=== PATIENT | male | born 1995 | race Caucasian/White ===

== ENCOUNTER 2020-11-09 15:15 | Emergency (ER) | payer OTHER ==
[2020-11-09 19:52] LABS: HEMOGLOBIN 16.4 gm/dl (14.0-17.5); RED BLOOD COUNT 5.17 M/UL (4.20-5.50); WHITE BLOOD COUNT 9.2 K/UL (4.5-11.0)
[2020-11-09 20:16] LABS: BUN/CREATININE RATIO 16 (0-10)
[2020-11-09] MEDS ORDERED: ZOFRAN4 MG PO (23:12)
[2020-11-11 12:15] LABS: HBSAG SCREEN Negative (Negative); HEP A AB, IGM Negative (Negative); HEP B CORE AB, IGM Negative (Negative); HEP C VIRUS AB <0.1 (0.0-0.9)
== END 2020-11-09 23:30 | disposition home or self-care (01) ==
LOC: ER1 15:15
PROVIDERS: Family Medicine; Physician Assistant
DX: R10.13 Epigastric pain (principal); R10.11 Right upper quadrant pain; R11.2 Nausea with vomiting, unspecified; F17.290 Nicotine dependence, other tobacco product, uncomplicated
CPT/HCPCS: 80053; 80074; 80307; 81001; 83690; 85025; 99284; Q9967

== ENCOUNTER 2020-11-27 23:57 | Inpatient (IN) | payer OTHER ==
[~2020-11-27] VITALS: Ht 182.9 cm; Wt 127.0 kg
[~2020-11-27 23:57] MED LIST: ZOFRAN4 MG PO
[2020-11-28 03:14] LABS: HEMOGLOBIN 17.1 gm/dl (14.0-17.5); RED BLOOD COUNT 5.31 M/UL (4.20-5.50); WHITE BLOOD COUNT 12.3 K/UL (4.5-11.0)
[2020-11-28 04:03] LABS: BUN/CREATININE RATIO 25 (0-10)
[2020-11-29 06:14] LABS: HEMOGLOBIN 14.2 gm/dl (14.0-17.5); RED BLOOD COUNT 4.56 M/UL (4.20-5.50); WHITE BLOOD COUNT 9.5 K/UL (4.5-11.0)
[2020-11-29 06:37] LABS: BUN/CREATININE RATIO 25 (0-10)
[2020-11-30 06:10] LABS: HEMOGLOBIN 13.9 gm/dl (14.0-17.5); RED BLOOD COUNT 4.41 M/UL (4.20-5.50); WHITE BLOOD COUNT 8.1 K/UL (4.5-11.0)
[2020-11-30 07:02] LABS: BUN/CREATININE RATIO 15 (0-10)
[2020-12-01 06:11] LABS: HEMOGLOBIN 14.3 gm/dl (14.0-17.5); RED BLOOD COUNT 4.5 M/UL (4.20-5.50)
[2020-12-01 06:26] LABS: WHITE BLOOD COUNT 12.8 K/UL (4.5-11.0)
[2020-12-01 06:44] LABS: BUN/CREATININE RATIO 12 (0-10)
[2020-12-01] MEDS ORDERED: TYLENOL 8 HOUR650 MG PO (11:48)
== END 2020-12-01 16:58 | disposition home health service (06) | DRG 417 ==
LOC: ER1 23:57 → MED SURG 4 11-28 06:26 → CDU 11-28 06:26 → MED SURG 4 11-28 09:26
PROVIDERS: Physician Assistant; Surgery; ADMIT Internal Medicine
PROC: 0FT44ZZ Resection of Gallbladder, Percutaneous Endoscopic Approach (ICD-10-PCS; principal; 2020-11-30 13:05)
DX: K80.12 Calculus of gallbladder with acute and chronic cholecystitis without obstruction (principal); K85.10 Biliary acute pancreatitis without necrosis or infection; Z20.822 Contact with and (suspected) exposure to COVID-19; E87.6 Hypokalemia; R74.01 Elevation of levels of liver transaminase levels; E66.9 Obesity, unspecified; D72.828 Other elevated white blood cell count; F17.210 Nicotine dependence, cigarettes, uncomplicated; K75.81 Nonalcoholic steatohepatitis (NASH); Z68.38 Body mass index [BMI] 38.0-38.9, adult
CPT/HCPCS: 36415; 76705; 80053; 80061; 81001; 82550; 82553; 83690; 83874; 84484; 85025; 87086; 93005; 99285; C9113; J0690; J1100; J1170; J1885; J2001; J2250; J2270; J2405; J2704; J2710; J3010; J7030; J7120; Q9967; U0002

== ENCOUNTER → 2021-08-05 | Outpatient (CLI) | payer OTHER ==
[~2021-08-05] MED LIST changes: +TYLENOL 8 HOUR650 MG PO
== END ==
LOC: KOH-I 15:53
DX: M25.561 Pain in right knee (principal); S80.01XA Contusion of right knee, initial encounter
CPT/HCPCS: 73721